=== PATIENT | female | born 1975 ===

== ENCOUNTER 2020-03-15 17:35 | Inpatient (IN) | payer OTHER, BC ==
[2020-03-15 19:01] VITALS: BMI 31.7
[2020-03-15] MEDS: ELECTROLYTE-148 SOLN 1,000 ML IV SCH (20:00)
[2020-03-15 20:03] LABS: BASO % 0.3 % (0-2.0); EOS % 0.3 % (0-4.5); HEMATOCRIT 37.5 % (32.4-45.2); HEMOGLOBIN 12.3 GM/dL (10.7-15.3); LYMPH % 17.7 % (8-40); MCH 29.5 pg (25.7-33.7); MEAN CELL VOLUME 89.7 fl (80-96); MEAN PLT VOLUME 9.8 fl (7.5-11.1); MONO % 8.1 % (3.8-10.2); NEUT % 73.6 % (42.8-82.8); PLATELET COUNT 147 K/MM3 (134-434); RBC 4.18 M/mm3 (3.60-5.2); WHITE BLOOD COUNT 7.6 K/mm3 (4.0-10.0)
[2020-03-15 20:10] LABS: INR 0.95 (0.83-1.09); PROTHROMBIN TIME (PATIENT) 11.2 SEC (9.7-13.0)
[2020-03-15 20:13] LABS: ACTIVATED PTT 27.9 SECONDS (25.2-36.5)
[2020-03-15] MEDS ORDERED: DINOPROSTONE 10 MG VAGINAL SUPPOSITORY VG ONE (20:18)
--- NOTE | 2020-03-15 20:24 | HP ---
Past Medical History - Primary Care Physician PCP:: Cachorro Lopez - Admission Chief Complaint: 45yo P0 with at EGA 39w3d admitted for labo indx. History of Present Illness: complicated by: Not in spont labor AMA Fibroid uterus with a lateral myoma in lower uterine segment 7-9 cm size. Suspected LGA Obesity Vaginal GBS positive. History Source: Patient Limitations to Obtaining History: No Limitations - Past Medical History FORENSIC NURSE: No: Alzheimer's, CVA, Dementia, Migraine, Multiple Sclerosis, Peripheral Neuropathy, Parkinson's, Seizure, Syncope, TIA, Vertigo, Other Cardiovascular: No: AFIB, Aneurysm, Aortic Insufficiency, Aortic Stenosis, CAD, CHF, Deep Vein Thrombosis, HTN, Hyperlipdemia, DC, Mitral Insufficiency, Mitral Stenosis, Murmur, Pulmonary Hypertension, Other Pulmonary: No: Asthma, Bronchitis, Cancer, COPD, O2 Dependent, Pneumonia, Previously Intubated, Pulmonary Embolus, Pulmonary Fibrosis, Sleep Apnea, Other Gastrointestinal: No: Ascites, Cancer, Constipation, Crohn's Disease, Diverticulitis, Diverticulosis, Esophageal Varices, Gastritis, GERD, GI Bleed, Hemorrhoids, Hiatal Hernia, Inflamatory Bowel Disease, Irritable Bowel Disease, Pancreatitis, Peptic Ulcer Disease, Ulcerative Colitis, Other Hepatobiliary: No: Cirrhosis, Cholelithiasis, Cholecystitis, Choledocholithiasis, Hepatitis A, Hepatitis B, Hepatitis C, Other Renal/: No: Renal Failure, Renal Inusuff, BPH, Cancer, Hematuria, Hemodialysis, Neurogenic Bladder, Renal Calculi, UTI, Other Reproductive: Yes: Fibroids ...: 3 ...Para: 0 ...Term: 0 ...: 0 ...Spon : 1 ...Induced : 1 ...Living Children: 0 ...Multiple Gestation: 0 ...EDC by Sono: 03/19/20 Heme/Onc: No: Anemia, B12 Deficiency, Bleeding Disorder, Cancer, Current Chemotherapy, Current Radiation Therapy, Hemochromatosis, Hypercoaguable State, Myeloproliferative Synd, Sickle Cell Disease, Sickle Cell Trait, Thrombocytopenia, Other Infectious Disease: No: AIDS, C-Diff, Herpes Zoster, HIV, MRSA, STD's, Tuberculosis, VREF, Other Psych: No: Addictions, Anxiety, Bipolar, Depression, Panic, Psychosis, Schizophrenia, Other Musculoskeletal: No: Bursitis, Chronic low back pain, Hemiparesis, Hemiplegia, Osteoarthritis, Paraplegia, Other Rheumatology: No: Fibromyalgia, Gout, Lupus, Rheumatoid Arthritis, Sarcoidosis, Vasculitis, Other ENT: No: Allergic Rhinitis, Sinusitis, Other Endocrine: No: [place]'s Disease, [place]'s Disease, Diabetes Insipidus, Diabetes Mellitus, Hyperparathyroidism, Hyperthyroidism, Hypothyroidism, Osteopenia, SIADH, Other Dermatology: No: Basal Cell, Cellulitis, Eczema, Melanoma, Psoriasis, Squamous Cell, Other - Past Surgical History Past Surgical History: Yes: None Hx Myomectomy: No Hx Transabdominal Cerclage: No - Smoking History Smoking history: Never smoked Have you smoked in the past 12 months: No - Alcohol/Substance Use Hx Alcohol Use: No History of Substance Use: reports: None - Social History Usual Living Arrangement: Yes: With Spouse Do you think of yourself as: Straight/Heterosexual ADL: Independent History of Recent Travel: No Home Medications - Allergies Allergies/Adverse Reactions: Allergies Allergy/AdvReac Type Severity Reaction Status Date / Time No Known Allergies Allergy Verified 03/15/20 18:53 - Home Medications Home Medications: Ambulatory Orders Vitamins (Sjr) - 1 tab PO DAILY 03/15/20 Family Medical History Family History: Unremarkable Family Hx Cancer: Mother (breast) Family Hx Cardiac Disorders: Father Family Hx Diabetes: Mother Review of Systems - Review of Systems Constitutional: reports: No Symptoms Eyes: reports: No Symptoms HENT: reports: No Symptoms Neck: reports: No Symptoms Cardiovascular: reports: No Symptoms Respiratory: reports: No Symptoms Gastrointestinal: reports: No Symptoms Genitourinary: reports: No Symptoms Breasts: reports: No Symptoms Reported Musculoskeletal: reports: No Symptoms Integumentary: reports: No Symptoms Neurological: reports: No Symptoms Endocrine: reports: No Symptoms Hematology/Lymphatic: reports: No Symptoms Psychiatric: reports: No Symptoms Pain Intensity: 0 Physical Exam - Maternity Vital Signs: Vital Signs Temperature 97.9 F 03/15/20 18:54 Pulse Rate 100 H 03/15/20 18:54 Respiratory Rate 17 03/15/20 18:54 Blood Pressure 131/76 03/15/20 18:54 O2 Sat by Pulse Oximetry (%) Constitutional: Yes: Well Nourished, No Distress, Calm Eyes: Yes: WNL, Conjunctiva Clear, EOM Intact HENT: Yes: WNL, Atraumatic, Normocephalic Neck: Yes: WNL, Supple, Trachea Midline Cardiovascular: Yes: WNL, Regular Rate and Rhythm Lungs: Clear to auscultation, Normal air movement - Abdominal Exam/OB Fundal Height: 40 Number of Fetuses: Single Presentation: Vertex (EFW 3700 gm by Taran maneuvers) Contractions: Yes Regularity: Irritability Intensity: Unaware Monitor Mode: External Heart Rate (range): 150 Heart Rate Location: Midline Category: I Accelerations: Uniform Decelerations: None - Vaginal Exam/OB Vaginal Bleeding: No Speculum Exam: No Dilatation (cm): 0.5 Effacement (%): 70 Amniotic Membrane Status: Intact Presentation: Vertex/Position Station: -3 (Adequate gynecoid pelvimetry) - Physical Exam Musculoskeletal: Yes: WNL Extremities: Yes: WNL Edema: No Integumentary: Yes: WNL Deep Tendon Reflex Grade: Normal +2 ...Motor Strength: WNL Psychiatric: Yes: WNL, Alert, Oriented - Labs Lab Results: CBC, BMP 03/15/20 19:20 Hemorrhage Risk Assessment - Risk Factors Medium Risk Factors: Yes: Large myomas Risk Score: 1 Risk Level: Medium Risk Imaging - Results Ultrasound: Report Reviewed Assessment/Plan 45yo P0 with at EGA 39w3d admitted for labo indx. Pt is not in labor. Fetus with Category I tracing. Adequate gynecoid pelvimetry on exam. We had long discussion re: risks, benefits, and alternatives of labor induction. I explained the options of expectant management awaiting spontaneous labor, induction of labor, and elective section. The risks of uterine tachysystole, distress, uterine rupture, need for emergency C/S, hemorrhage, infection, scarring, etc. were discussed. We also discussed the risks of meconium aspiration, shoulder dystocia, and anesthesia options. The pt requested to proceed with induction. We discussed the alternative methods of induction with Cervidil, Cytotec, Folley ballon, and pitocin. The pt prefers Cervidil followed by pitocin, if needed.
[2020-03-15 20:25] LABS: BLOOD UREA NITROGEN 8.1 mg/dL (7-18); CALCIUM 8.6 mg/dL (8.5-10.1); CREATININE 0.4 mg/dL (0.55-1.3)
[2020-03-16] MEDS ORDERED: AMPICILLIN SODIUM 2 GM VIAL ONE (05:53)
[2020-03-16] MEDS ORDERED: AMPICILLIN - 2 GM in SODIUM CHLORIDE 100 ML IVPB ONE (06:00)
[2020-03-16] MEDS: ELECTROLYTE-148 SOLN 1,000 ML IV SCH ×2 (07:25→22:30)
[2020-03-16] MEDS: DEXTROSE 5%-LACTATED RINGERS 1,000 ML IV SCH (07:49)
--- NOTE | 2020-03-16 08:46 | PN ---
Ante-Partal Exam - Subjective Subjective: No complaints. Cervidil was removed. Pt is not in labor. Vital Signs: Vital Signs Temperature 97.9 F 03/16/20 05:00 Pulse Rate 86 03/16/20 05:00 Respiratory Rate 20 03/16/20 05:00 Blood Pressure 119/74 03/16/20 05:00 O2 Sat by Pulse Oximetry (%) Bleeding: No Headache: No Visual changes: No Right upper quadrant pain: No Pain (scale 1-10): 2 - Contractions Contractions: Yes Regularity: Irritability Intensity: Unaware Monitor Mode: External - Exam during Labor Heart Rate: 130 Variability: Moderate Heart Rate Location: Midline Category: I Monitor Accelerations: Present Monitor Decelerations: None Exam: Vaginal Dilatation (cm): 0.5 Effacement (%): 70 Amniotic Membrane Status: Intact Presentation: Vertex Station: -3 - Intrapartum Hemorrhage Risk Medium Risk Factors: None High Risk Factors: None Risk Score: 0 Risk Level: Low Risk - Assessment/Plan Assessment/Plan: 45yo P0 with at EGA 39w4d undergoing labor indx. Fetus with category I tracing. Pt is not in labor. We discussed labor delivery options. Plan to start pitocin for labor indx.
[2020-03-16] MEDS: OXYTOCIN 30 UNITS in 0.9% NS 30 UNIT/500 ML INFUS.BAG IVPB SCH (09:10)
[2020-03-16] MEDS ORDERED: AMPICILLIN SODIUM 1 GM VIAL ONE ×4 (10:10→21:52)
[2020-03-16] MEDS: AMPICILLIN - 1 GM in SODIUM CHLORIDE 100 ML IVPB SCH ×4 (10:16→22:00)
[2020-03-16] MEDS ORDERED: PROMETHAZINE HCL 25 MG/1 ML VIAL ONE (16:31)
[2020-03-16] MEDS ORDERED: BUTORPHANOL TARTRATE 2 MG/ML VIAL ONE (16:31)
[2020-03-16] MEDS ORDERED: PCA PUMP NR ONE (16:39)
[2020-03-16] MEDS ORDERED: FENTANYL/BUPIVACAINE/NS/PF - PCEA - 50 ML DISP.SYRIN EP ONE ×2 (16:40→21:59)
[2020-03-16] MEDS ORDERED: NALOXONE HCL 0.4 MG/ML VIAL IVPUSH PRN (16:56)
[2020-03-16] MEDS ORDERED: BUPIVACAINE HCL/PF 0.25% (2.5MG/ML) 10 ML VIAL ONE (16:59)
[2020-03-16] MEDS ORDERED: FENTANYL/BUPIVACAINE/NS/PF - PCEA - 50 ML DISP.SYRIN EP SCH (17:00)
--- NOTE | 2020-03-16 19:58 | PN ---
Ante-Partal Exam - Subjective Subjective: No complaints, s/p epidural. Pitocin at 13mU Vital Signs: Vital Signs Temperature 98.0 F 03/16/20 19:00 Pulse Rate 70 03/16/20 18:45 Respiratory Rate 18 03/16/20 18:45 Blood Pressure 108/68 03/16/20 18:45 O2 Sat by Pulse Oximetry (%) 96 03/16/20 18:45 Bleeding: No Headache: No Visual changes: No Right upper quadrant pain: No Pain (scale 1-10): 0 - Contractions Contractions: Yes (q4-5 min) Regularity: Regular Intensity: Unaware Monitor Mode: External - Exam during Labor Heart Rate: 140 Variability: Moderate Heart Rate Location: Midline Category: I Monitor Accelerations: Present Monitor Decelerations: Variable Exam: Rectal Dilatation (cm): 1 Effacement (%): 100 Amniotic Membrane Status: Leaking Amniotic Fluid: Clear Presentation: Vertex Station: -3 - Intrapartum Hemorrhage Risk Medium Risk Factors: None High Risk Factors: None Risk Score: 0 Risk Level: Low Risk - Assessment/Plan Assessment/Plan: P0 undergoing labor induction. Labor in latent phase, s/p SROM at 3:45pm. Plan to continue pitocin. Fetus with category I tracing and requires no intervention. Plan to continue labor indx. I discussed the continued labor induction vs. proceeding with C/S with pt and her . The pt prefers to continue labor induction and avoid C/S unless there are Obstetric indications.
[2020-03-17] MEDS ORDERED: AMPICILLIN SODIUM 1 GM VIAL ONE ×2 (01:46→05:24)
[2020-03-17] MEDS: AMPICILLIN - 1 GM in SODIUM CHLORIDE 100 ML IVPB SCH ×2 (02:00→06:00)
[2020-03-17] MEDS ORDERED: FENTANYL/BUPIVACAINE/NS/PF - PCEA - 50 ML DISP.SYRIN EP ONE ×2 (03:03→07:12)
[2020-03-17] MEDS ORDERED: BUPIVACAINE HCL/PF 0.25% (2.5MG/ML) 10 ML VIAL ONE (07:34)
[2020-03-17] MEDS ORDERED: OXYTOCIN 20 UNITS in 0.9% NS 20 UNIT/1,000 ML INFUS.BAG IV ONE ×2 (08:17→13:01)
[2020-03-17] MEDS ORDERED: LIDOCAINE HCL 1% PRESERVATIVE FREE - 30ML VIAL ONE (08:17)
[2020-03-17] MEDS ORDERED: BISACODYL 10 MG SUPP.RECT RC PRN (09:10)
[2020-03-17] MEDS ORDERED: BENZOCAINE 20% 57 GM BOTTLE TP PRN (09:10)
[2020-03-17] MEDS ORDERED: ACETAMINOPHEN 325 MG TABLET (FP) PO PRN (09:10)
[2020-03-17] MEDS ORDERED: WITCH HAZEL 50% (TUCKS) 40 PAD/JAR PAD TP PRN (09:10)
[2020-03-17] MEDS ORDERED: METHYLERGONOVINE MALEATE 0.2 MG/1 ML AMP IM PRN (09:10)
[2020-03-17] MEDS ORDERED: BENZOCAINE 28 GM HEMORRHOIDAL OINTMENT TP PRN (09:10)
[2020-03-17] MEDS ORDERED: OXYTOCIN 20 UNITS in 0.9% NS 20 UNIT/1,000 ML INFUS.BAG IV SCH (09:15)
--- NOTE | 2020-03-17 09:17 | PN ---
Delivery - Delivery Vaginal Delivery: No Problems, Spontaneous Type of Anesthesia: Epidural Episiotomy/Laceration: Midline, Perineal Extension/lac, 2nd degree EBL (cc): 300 Delivery, Single - Stages of Labor Date of Delivery: 03/17/20 Date Placenta Delivered: 03/17/20 Placenta: Yes: Spontaneous, Normal Configuration - Condition of Job Checker/Radiology Physician Assistant Present: No Infant Gender: Female Position: Right, OA - Jordan Feeding Plan Initial Plan: Exclusive throughout hospitalization Benefits of Exclusively reinforced: Yes Remarks - Remarks Remarks: w/o complications. Loose nuchal cord x 1, released w/o difficulty. Small midline 2nd degree perineal laceration repaired.
[2020-03-17] MEDS: OXYTOCIN 30 UNITS in 0.9% NS 30 UNIT/500 ML INFUS.BAG IVPB SCH (11:27)
[2020-03-17] MEDS: PRENATAL VITAMINS W/ FOLIC ACID TABLET (FP) PO SCH (11:40)
[2020-03-17] MEDS: DEXTROSE 5%-LACTATED RINGERS 1,000 ML IV SCH (11:40)
[2020-03-17] MEDS ORDERED: IBUPROFEN 600 MG TABLET (FP) PO ONE (13:23)
[2020-03-17] MEDS: IBUPROFEN 600 MG TABLET (FP) PO PRN (13:30)
--- NOTE | 2020-03-17 16:08 | PN ---
Delivery - Delivery Vaginal Delivery: No Problems, Spontaneous Type of Anesthesia: Local, Epidural Episiotomy/Laceration: Midline, Perineal Extension/lac, 2nd degree EBL (cc): 300 Delivery, Single - Stages of Labor Date 1st Stage Initiatied: 03/16/20 Time 1st Stage Initiated: 17:00 Date 2nd Stage Initiated: 03/17/20 Time 2nd Stage Initiated: 08:10 Date of Delivery: 03/17/20 Time of Delivery: 08:51 Time Placenta Delivered: 08:55 Placenta: Yes: Spontaneous, Normal Configuration - Condition of Men'S Basketball Coach/Scheduling Assistant Present: Yes Name: Francoise Minaya Infant Gender: Female Weight: 3.912 kg Position: Right, OA Total Hours ROM (Hrs/Mins): 17hrs 10min - 1 Minute Total Score: 8 5 Minutes Total Score: 8 - Feeding Plan Initial Plan: Exclusive throughout hospitalization Benefits of Exclusively reinforced: Yes Remarks - Remarks Remarks: w/o complications. Loose nuchal cord x 1, released w/o difficulty. Small midline 2nd degree perineal laceration repaired.
[2020-03-17] MEDS ORDERED: SENNOSIDES/DOCUSATE COMBO (SENNA PLUS) TABLET (UD) PO PRN (23:08)
[2020-03-18] MEDS ORDERED: SENNOSIDES 8.6MG TABLET (FP) PO PRN (01:06)
[2020-03-18 05:33] VITALS: TEMP 98.6
[2020-03-18] MEDS: IBUPROFEN 600 MG TABLET (FP) PO PRN (05:41)
[2020-03-18 08:13] LABS: BASO % 0.2 % (0-2.0); EOS % 0.8 % (0-4.5); HEMATOCRIT 32.6 % (32.4-45.2); HEMOGLOBIN 10.7 GM/dL (10.7-15.3); LYMPH % 12.8 % (8-40); MCHC 32.9 g/dl (32.0-36.0); MEAN PLT VOLUME 10.1 fl (7.5-11.1); MONO % 7.8 % (3.8-10.2); NEUT % 78.4 % (42.8-82.8); PLATELET COUNT 126 K/MM3 (134-434); RBC 3.58 M/mm3 (3.60-5.2); RDW 15.2 % (11.6-15.6)
[2020-03-18 08:39] LABS: POC NITRAZINE POS
--- NOTE | 2020-03-18 09:25 | PN ---
Post Progress Note - Subjective Subjective: Patient without acute complaints. Reports tolerating oral intake without nausea or vomiting. Ambulating without dizziness. Denies fevers or chills. Pain well controlled with oral pain medication. Pumping colostrum. Passing flatus. Post Day: 1 Type of Delivery: Vital Signs: Vital Signs Temperature 98.6 F 03/18/20 05:33 Pulse Rate 88 03/18/20 05:33 Respiratory Rate 20 03/18/20 05:33 Blood Pressure 120/70 03/18/20 05:33 O2 Sat by Pulse Oximetry (%) 100 03/17/20 08:30 Breast Exam: Yes: Soft Uterus: Yes: Fundus Firm Abdomen/GI: Yes: Abdomen soft, Tolerating PO. No: Abdominal Distention, Tender Lochia: Yes: Rubra Lochia, amount: Moderate Extremities: Yes: Calves non-tender. No: Edema Perineum: Yes: Laceration Activity: Ambulating - Labs Labs: CBC WBC 12.0 K/mm3 (4.0-10.0) H 03/18/20 07:16 RBC 3.58 M/mm3 (3.60-5.2) L 03/18/20 07:16 Hgb 10.7 GM/dL (10.7-15.3) 03/18/20 07:16 Hct 32.6 % (32.4-45.2) 03/18/20 07:16 MCV 91.0 fl (80-96) 03/18/20 07:16 MCH 30.0 pg (25.7-33.7) 03/18/20 07:16 MCHC 32.9 g/dl (32.0-36.0) 03/18/20 07:16 RDW 15.2 % (11.6-15.6) 03/18/20 07:16 Plt Count 126 K/MM3 (134-434) L 03/18/20 07:16 MPV 10.1 fl (7.5-11.1) 03/18/20 07:16 Absolute Neuts (auto) 9.4 K/mm3 (1.5-8.0) H 03/18/20 07:16 Neutrophils % 78.4 % (42.8-82.8) 03/18/20 07:16 Lymphocytes % 12.8 % (8-40) D 03/18/20 07:16 Monocytes % 7.8 % (3.8-10.2) 03/18/20 07:16 Eosinophils % 0.8 % (0-4.5) D 03/18/20 07:16 Basophils % 0.2 % (0-2.0) 03/18/20 07:16 Nucleated RBC % 0 % (0-0) 03/18/20 07:16 Assessment/Plan 45 yo PPD # 1 s/p , afebrile, vital signs stable, desires dC home today 1. Patient stable for discharge home today. 2. Patient encouraged to contact MD for: - Severe pain not controlled by oral pain medication - Fevers or chills - Nausea or vomiting, intolerance of oral intake 3. Patient to follow up in office in 4-6 weeks for visit
[2020-03-18 10:42] VITALS: BP 115/65; PULSE 92
[2020-03-18] MEDS: PRENATAL VITAMINS W/ FOLIC ACID TABLET (FP) PO SCH (10:48)
== END 2020-03-18 11:30 | disposition home or self-care (01) | DRG 807 ==
LOC: JDEL 17:35 → JLDR 18:10 → J3W 03-17 15:18
PROVIDERS: ADMIT Obstetrics & Gynecology; ATTEND Obstetrics & Gynecology
PROC: 3E0P7VZ Introduction of Hormone into Female Reproductive, Via Natural or Artificial Opening (ICD-10-PCS; principal; 2020-03-15)
PROC: 10E0XZZ Delivery of Products of Conception, External Approach (ICD-10-PCS; 2020-03-17)
PROC: 0HQ9XZZ Repair Perineum Skin, External Approach (ICD-10-PCS; 2020-03-17)
PROC: 0W8NXZZ Division of Female Perineum, External Approach (ICD-10-PCS; 2020-03-17)
DX: O36.62X0 Maternal care for excessive fetal growth, second trimester, not applicable or unspecified (principal); Z37.0 Single live birth; O34.13 Maternal care for benign tumor of corpus uteri, third trimester; D25.9 Leiomyoma of uterus, unspecified; Z3A.39 39 weeks gestation of pregnancy; O99.214 Obesity complicating childbirth; E66.9 Obesity, unspecified; O69.81X0 Labor and delivery complicated by cord around neck, without compression, not applicable or unspecified; O70.1 Second degree perineal laceration during delivery
CPT/HCPCS: 36415; 59409; 80048; 83986-QW; 85025; 85610; 85730; 86780; 86850; 86900; 86901; 87389